=== PATIENT | male | born 1980 ===

== ENCOUNTER 2024-04-04 04:55 | Day surgery (SDC) | payer OTHER ==
[2024-03-31 16:53] VITALS: BMI 27.3
[2024-04-04 10:27] VITALS: RESP 18
[2024-04-04] MEDS ORDERED: MIDAZOLAM HCL 2 MG/2 ML SINGLE DOSE VIAL ONE ×2 (12:20→12:42)
[2024-04-04] MEDS ORDERED: DEXAMETHASONE SOD PHOSPHATE 10 MG/1 ML VIAL ONE (12:23)
[2024-04-04] MEDS: LIDOCAINE HCL 1% PRESERVATIVE FREE - 30ML VIAL IJ ONE ×2 (12:51)
[2024-04-04] MEDS: IOHEXOL 180 MG/1 ML ML IJ ONE ×2 (12:51)
[2024-04-04] MEDS: DEXAMETHASONE SOD PHOSPHATE 10 MG/1 ML VIAL IVPUSH ONE ×2 (12:51)
[2024-04-04] MEDS: BUPIVACAINE HCL/PF 0.25% (2.5MG/ML) 10 ML VIAL IJ ONE (12:51)
[2024-04-04] MEDS ORDERED: ONDANSETRON 4 MG/2 ML VIAL IVPUSH PRN (13:01)
[2024-04-04 13:05] VITALS: BP 117/72; PULSE 70
[2024-04-04] MEDS ORDERED: ACETAMINOPHEN INJECTION 100 ML IVPB ONE (13:06)
[2024-04-04 13:07] VITALS: TEMP 97.8
[2024-04-04] MEDS: ACETAMINOPHEN 1000 MG/100 ML BAG IVPB ONE (13:08)
[2024-04-04] MEDS ORDERED: LACTATED RINGERS SOLUTION 1,000 ML IV SCH (13:15)
[2024-04-04] MEDS ORDERED: PANTOPRAZOLE 20 MG TABLET PO ONE (13:20)
[2024-04-04] MEDS: PANTOPRAZOLE 20 MG TABLET PO ONE (13:47)
== END 2024-04-04 14:37 | disposition home or self-care (01) ==
LOC: JASU-SURG 04:55
PROVIDERS: ATTEND Physical Medicine & Rehabilitation
PROC: 3E0R3BZ Introduction of Anesthetic Agent into Spinal Canal, Percutaneous Approach (ICD-10-PCS; 2024-04-04)
PROC: 3E0R33Z Introduction of Anti-inflammatory into Spinal Canal, Percutaneous Approach (ICD-10-PCS; principal; 2024-04-04 12:00)
DX: M54.12 Radiculopathy, cervical region (principal)
CPT/HCPCS: 76000-TC-FY; J0131; J1100